=== PATIENT | female | born 2000 | race African-American/Black ===

== ENCOUNTER 2021-09-03 19:48 | Emergency (ER) | payer OTHER ==
[~2021-09-03] VITALS: Ht 157.5 cm; Wt 52.2 kg
[~2021-09-03 19:48] MED LIST: SYNTHROID50 MCG
== END 2021-09-04 12:47 | disposition home or self-care (01) ==
LOC: EMR PED 19:48
DX: N94.6 Dysmenorrhea, unspecified (principal); R10.2 Pelvic and perineal pain; R11.10 Vomiting, unspecified; Z20.822 Contact with and (suspected) exposure to COVID-19

== ENCOUNTER 2021-09-09 22:21 | Emergency (ER) | payer OTHER ==
[~2021-09-09] VITALS: Ht 157.5 cm; Wt 52.2 kg
[2021-09-10] MEDS ORDERED: CULTURELLE1 EACH PO (11:14)
[2021-09-10] MEDS ORDERED: PEPCID AC20 MG PO (11:14)
[2021-09-10] MEDS ORDERED: PROTONIX20 MG PO (11:14)
== END 2021-09-10 11:32 | disposition home or self-care (01) ==
LOC: ER 22:21 → EMR PED 22:21
DX: R11.10 Vomiting, unspecified (principal); E86.0 Dehydration; E03.9 Hypothyroidism, unspecified

== ENCOUNTER 2021-09-10 23:05 | Emergency (ER) | payer OTHER ==
[~2021-09-10] VITALS: Ht 157.5 cm; Wt 52.2 kg
[~2021-09-10 23:05] MED LIST changes: +CULTURELLE1 EACH PO; +PEPCID AC20 MG PO; +PROTONIX20 MG PO
== END 2021-09-11 11:31 | disposition designated cancer center or children's hospital (05) ==
LOC: ER 23:05 → EMR PED 23:07 → ER 23:07 → EMR PED 09-11 11:31
DX: K52.9 Noninfective gastroenteritis and colitis, unspecified (principal); R63.0 Anorexia; E86.0 Dehydration; E87.6 Hypokalemia; R74.01 Elevation of levels of liver transaminase levels; R73.09 Other abnormal glucose

== ENCOUNTER 2022-03-01 18:50 | Emergency (ER) | payer OTHER ==
[~2022-03-01] VITALS: Ht 167.6 cm; Wt 47.6 kg
== END 2022-03-02 01:29 | disposition designated cancer center or children's hospital (05) ==
LOC: EMR PED 18:50
DX: K29.70 Gastritis, unspecified, without bleeding (principal); E11.9 Type 2 diabetes mellitus without complications; Z20.822 Contact with and (suspected) exposure to COVID-19

== ENCOUNTER 2022-05-13 19:45 | Inpatient (IN) | payer OTHER ==
[~2022-05-13] VITALS: Ht 157.5 cm; Wt 45.5 kg
[2022-05-13] MEDS ORDERED: HYDROXYZINE PAM50 MG PO (20:24)
[2022-05-13] MEDS ORDERED: FLUOXETINE HCL20 MG PO (20:24)
[2022-05-14] MEDS ORDERED: ONDANSETRON ODT4 MG PO (14:38)
== END 2022-05-14 15:07 | disposition home or self-care (01) | DRG 392 ==
LOC: ER 19:45 → EMR PED 19:49 → PED 22:31
PROVIDERS: ADMIT Emergency Medicine; ATTEND Emergency Medicine
DX: K29.70 Gastritis, unspecified, without bleeding (principal); E86.0 Dehydration; Z20.822 Contact with and (suspected) exposure to COVID-19